=== PATIENT | female | born 1985 | race Caucasian/White ===

== ENCOUNTER 2021-03-24 08:59 | Day surgery (SDC) | payer MEDICAID ==
[~2021-03-24] VITALS: Ht 170.2 cm; Wt 90.7 kg
[~2021-03-24 08:59] MED LIST: ACET-1516 PO; ALBU0.084 IN; ALBUAER3 IN; ALPR2TAB2 PO; FERR18TA PO; LURA80TA PO; SERT100T PO
[2021-03-24] MEDS ORDERED: ONDANSETRON HCL 4 MG/2 ML VIAL ONE (09:25)
[2021-03-24] MEDS ORDERED: MIDAZOLAM HCL 2MG/2ML 2ml VIAL (1mg/ml) ONE (09:25)
[2021-03-24] MEDS ORDERED: SODIUM CHLORIDE LOCK 10 ML ONE (09:25)
[2021-03-24] MEDS ORDERED: fentaNYL CITRATE 100 MCG/2 ML VL ONE ×3 (09:25→12:46)
[2021-03-24] MEDS ORDERED: PROPOFOL 10 MG/ML 20 ML IV ONE (09:25)
[2021-03-24] MEDS ORDERED: MEPERIDINE HCL (25 MG/ML) 1ML VIAL ONE (09:25)
[2021-03-24] MEDS ORDERED: BACITRACIN INJ 50000 UNIT VIAL ONE (10:49)
[2021-03-24] MEDS ORDERED: TRANEXAMIC ACID 10 ML ONE (10:49)
[2021-03-24] MEDS ORDERED: HYDROmorphone HCL 2 MG/ML VL IV PRN (11:00)
[2021-03-24] MEDS ORDERED: METOCLOPRAMIDE HCL 5MG/ml INJ 2ml VIAL IV PRN (11:00)
[2021-03-24] MEDS ORDERED: fentaNYL CITRATE 100 MCG/2 ML VL IV PRN (11:00)
[2021-03-24] MEDS ORDERED: ROCURONIUM 10MG/ML 10ML VIAL IV ONE (11:04)
[2021-03-24] MEDS ORDERED: SUCCINYLCHOLINE CHLORIDE 20 MG/ML 10ML VIAL IV ONE (11:04)
[2021-03-24] MEDS: CLINDAMYCIN 600MG IV 50 ML IV ONE ×2 (11:12→11:39)
[2021-03-24] MEDS ORDERED: VANCOMYCIN HCL 1000 MG VL ONE (11:31)
[2021-03-24] MEDS ORDERED: fentaNYL CITRATE 5 ML ONE (13:06)
[2021-03-24] MEDS ORDERED: BUPIVACAINE HCL 50 ML ONE (13:55)
[2021-03-24 15:45] VITALS: BP 148/96
[2021-03-24] MEDS ORDERED: HYDROmorphone HCL 2 MG/ML VL ONE (15:58)
== END 2021-03-24 16:15 | disposition home or self-care (01) ==
LOC: SUR 08:59
PROVIDERS: ATTEND Orthopaedic Surgery Sports Medicine
DX: M25.311 Other instability, right shoulder (principal); D64.9 Anemia, unspecified; J45.909 Unspecified asthma, uncomplicated; F41.9 Anxiety disorder, unspecified; F32.9 Major depressive disorder, single episode, unspecified; E66.01 Morbid (severe) obesity due to excess calories; G89.29 Other chronic pain; Z68.42 Body mass index [BMI] 45.0-49.9, adult; Z20.822 Contact with and (suspected) exposure to COVID-19; Z88.5 Allergy status to narcotic agent; Z88.0 Allergy status to penicillin; Z98.890 Other specified postprocedural states; Z79.899 Other long term (current) drug therapy
CPT/HCPCS: 23462; 36415; 73030; 81025; 84702; 86850; 86900; 86901; C1713; J0330; J1170; J2175; J2250; J2405; J2704; J2765; J3010; J3370; J3490; U0003; 76000